=== PATIENT | female | born 1985 | race Caucasian/White ===

== ENCOUNTER 2019-07-27 21:03 | Emergency (ER) | payer SELFPAY ==
[2019-07-27] MEDS ORDERED: MORPHINE 4 MG/ML SYR ONE (21:54)
[2019-07-27] MEDS ORDERED: ONDANSETRON 4 MG/2 ML VIAL ONE (21:55)
[2019-07-27] MEDS ORDERED: NA CHLORIDE 0.9% 1,000 ML ONE (21:55)
[2019-07-27 22:13] LABS: Absolute Lymphocytes (CBC) 2.5 K/uL (0.7-4.9); Basophils % 1.4 % (0-1.3); Hematocrit 37.9 % (36.0-45.0); Lymphocytes % 28.6 % (15.3-44.8); MPV 8.7 fL (7.6-11.3); RBC Red Blood Cell Count 4.29 M/uL (3.86-4.86)
[2019-07-27 22:25] LABS: ALT/SGPT 20 U/L (12-78); AST/SGOT 12 U/L (15-37); Albumin 4.1 g/dL (3.4-5.0); Alkaline Phosphatase 109 U/L (45-117); BUN Blood Urea Nitrogen 10 mg/dL (7-18); Bicarbonate 26 mmol/L (21-32); Bilirubin Direct < 0.1 mg/dL (0-0.2); Bilirubin Total 0.2 mg/dL (0.2-1.0); Glucose Level 58 mg/dL (74-106); Lipase 180 U/L (73-393); Potassium 3.3 mmol/L (3.5-5.1); Protein, Total 7.3 g/dL (6.4-8.2); Sodium Level 141 mmol/L (136-145)
[2019-07-27] MEDS ORDERED: POTASSIUM CL SA 10 MEQ TAB PO ONE (23:05)
--- NOTE | 2019-07-28 00:28 | EDPHYS ---
Physician Documentation [facility] Name: Cora Rose Age: 34 yrs Sex: Female : 1985 Arrival Date: 07/27/2019 Time: 21:05 Bed 14 Private MD: ED Physician Azar Peterson HPI: 07/27 22:03 This 34 yrs old Female presents to ER via Ambulatory with complaints of pkl Abdominal Pain, Back Pain. 22:04 The patient presents with abdominal pain in the lower abdomen. Onset: The pkl symptoms/episode began/occurred 3 week(s) ago. Associated signs and symptoms: Pertinent positives: back pain. 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 - Social history:: Smoking status: Patient uses tobacco products, smokes one-half pack cigarettes per day, Patient uses alcohol, occasionally. Patient/guardian denies using street drugs. - Ebola Screening: : No symptoms or risks identified at this time. ROS: 22:04 Eyes: Negative for injury, pain, redness, and discharge, ENT: Negative for injury, pkl pain, and discharge, Neck: Negative for injury, pain, and swelling, Cardiovascular: Negative for chest pain, palpitations, and edema, Respiratory: Negative for shortness of breath, cough, wheezing, and pleuritic chest pain. 22:04 Abdomen/GI: Positive for abdominal pain, of the right lower quadrant and left lower quadrant. 22:04 Back: Positive for pain at rest, of the lower back. 22:04 : Negative for urinary symptoms. 22:04 MS/extremity: Negative for acute changes. 22:04 Skin: Negative for rash. 22:04 Neuro: Negative for altered mental status. Exam: 22:04 Head/Face: Normocephalic, atraumatic. Eyes: Pupils equal round and reactive to light, pkl extra-ocular motions intact. Lids and lashes normal. Conjunctiva and sclera are non-icteric and not injected. Cornea within normal limits. Periorbital areas with no swelling, redness, or edema. ENT: Nares patent. No nasal discharge, no septal abnormalities noted. Tympanic membranes are normal and external auditory canals are clear. Oropharynx with no redness, swelling, or masses, exudates, or evidence of obstruction, uvula midline. Mucous membranes moist. Neck: Trachea midline, no thyromegaly or masses palpated, and no cervical lymphadenopathy. Supple, full range of motion without nuchal rigidity, or vertebral point tenderness. No Meningismus. Chest/axilla: Normal chest wall appearance and motion. Nontender with no deformity. No lesions are appreciated. Cardiovascular: Regular rate and rhythm with a normal S1 and S2. No gallops, murmurs, or rubs. Normal PMI, no JVD. No pulse deficits. Respiratory: Lungs have equal breath sounds bilaterally, clear to auscultation and percussion. No rales, rhonchi or wheezes noted. No increased work of breathing, no retractions or nasal flaring. Abdomen/GI: Soft, non-tender, with normal bowel sounds. No distension or tympany. No guarding or rebound. No evidence of tenderness throughout. Back: No spinal tenderness. No costovertebral tenderness. Full range of motion. Skin: Warm, dry with normal turgor. Normal color with no rashes, no lesions, and no evidence of cellulitis. MS/ Extremity: Pulses equal, no cyanosis. Neurovascular intact. Full, normal range of motion. Neuro: Awake and alert, GCS 15, oriented to person, place, time, and situation. Cranial nerves II-XII grossly intact. Motor strength 5/5 in all extremities. Sensory grossly intact. Cerebellar exam normal. Normal gait. Vital Signs: 21:20 BP 125 / 77; Pulse 90; Resp 16 S; Temp 97.9(O); Pulse Ox 100% on R/A; Weight 53.07 kg bb (R); Height 5 ft. 0 in. (152.40 cm) (R); Pain 7/10; 22:30 BP 108 / 72; Pulse 110; Resp 16; Pulse Ox 100% on R/A; jb4 23:45 BP 93 / 60; Pulse 85; Resp 16; Pulse Ox 100% on R/A; jb4 21:20 Body Mass Index 22.85 (53.07 kg, 152.40 cm) alena MDM: 21:29 Patient medically screened. pkl 07/28 00:23 Data reviewed: vital signs, nurses notes, lab test result(s). ED course: Patient left pkl without notifying nursing staff. 00:25 ED course: Patient left before CT Scan Abdomen/ Pelvis done. pkl 07/27 21:42 Order name: Basic Metabolic Panel; Complete Time: 22:49 pkl 07/27 21:42 Order name: CBC with Diff; Complete Time: 22:49 pkl 07/27 21:42 Order name: Creatinine for Radiology; Complete Time: 22:49 pkl 07/27 21:42 Order name: Hepatic Function; Complete Time: 22:49 pkl 07/27 21:42 Order name: Lipase; Complete Time: 22:49 pkl 07/28 00:15 Order name: Urine Dipstick--Ancillary (enter results) oe 07/27 21:42 Order name: IV Saline Lock; Complete Time: 22:10 pkl 07/27 21:42 Order name: Labs collected and sent; Complete Time: 22:10 pkl Administered Medications: 07/27 22:02 Drug: Zofran 4 mg Route: IVP; Site: right antecubital; jb4 22:30 Follow up: Response: No adverse reaction; Nausea is decreased jb4 22:04 Drug: morphine 2 mg Route: IVP; Site: right antecubital; jb4 22:30 Follow up: Response: No adverse reaction; Pain is decreased jb4 22:05 Drug: NS 0.9% 1000 ml Route: IV; Rate: 125 ml/hr; Site: right antecubital; jb4 07/28 00:22 Follow up: Response: No adverse reaction; IV Status: Pt d/c'd IV and infusion 4 07/27 23:24 Drug: K-Dur 40 mEq Route: PO; [facility] 23:46 Follow up: Response: No adverse reaction [facility] Disposition: 07/28/19 00:27 Patient left the facility after being seen by provider. Preliminary diagnosis is Abdominal pain. - Patient left due to unknown. - Condition is Stable. - Problem is new. - Symptoms have improved. Signatures: Dispatcher [employer] EDMS Azar Peterson MD MD pkl Jane Frias RN RN Jean Daniels, RN RN jb4 Corrections: (The following items were deleted from the chart) 07/28 00:28 07/27 21:43 Abdomen Pelvis W Con+CT.RAD.BRZ ordered. EDMS EDMS 07/28 00:28 00:27 07/28/2019 00:27 Patient left the facility after being seen by provider. Reason pkl stated they are leaving due to unknown. pkl 00:39 00:28 07/28/2019 00:27 Patient left the facility after being seen by provider. [email or web address] Preliminary diagnosis is Abdominal pain. Reason stated they are leaving due to unknown. Condition is Stable. Problem is new. Symptoms have improved. pkl
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
[2019-07-28 00:42] LABS: Urine Blood 2+ (NEG); Urine Glucose NEGATIVE (NEG); Urine Protein NEGATIVE (NEG); Urine Specific Gravity <1.005 (1.005-1.030); Urine pH 5.5 (5.0-7.0)
[2019-07-28 00:56] VITALS: TEMP 97.9; O2SAT 100
[2019-07-28 00:59] VITALS: BP 93/60
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
== END 2019-07-28 00:39 | disposition left against medical advice (07) ==
LOC: ER 21:03
DX: R10.30 Lower abdominal pain, unspecified (principal); M54.5 Low back pain; G40.909 Epilepsy, unspecified, not intractable, without status epilepticus; F17.210 Nicotine dependence, cigarettes, uncomplicated
CPT/HCPCS: 36415; 80048; 80076; 81003; 83690; 85025; 96361; 96374; 96375; 99283; J2405; J7030